=== PATIENT | male | born 1955 | race Caucasian/White ===

== ENCOUNTER 2025-01-08 08:41 | Outpatient (REF) | payer MEDICARE, MEDICAID, SELFPAY ==
--- NOTE | ~2025-01-08 | XR_ITS ---
EXAMINATION: XR KNEE, LEFT CLINICAL INFORMATION: M25.562 - Pain in left knee COMPARISON: None available. TECHNIQUE: AP bilateral, lateral, and sunrise views of the left knee. FINDINGS: There is moderate narrowing of the medial joint compartment and mild narrowing of the lateral. There are small marginal osteophytes, larger along the medial joint line. Small joint effusion is evident. There is faint amorphous calcific density visible in the lateral clear space and probably involving patellar cartilage at the median ridge. 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 Electronically signed by: Raghav Lai MD 01/08/2025 01:02 PM EDT
--- OUTSIDE RECORDS SUMMARY | 2025-01-09 08:49 | XMS_ITS | Clinical Summary ---
Author Organization [facility] Address [address] [place] [address] Care Team Providers Care Associate Agent Insurance Sales Name Role Phone Freddie Sepulveda MD Primary Care Provider +1- [phone] Allergies No known active allergies Medications Medication [...] this topic Medical Devices Implanted Type Area Cooling Tower Technician Device Identifier Shelf Expiration Date Model / Serial / Lot Stent Advanix 12cm 10fr Duodenal Bend Rapdx Preloaded Plas - [id number] - [id number] Implanted:Qty: 1 on 06/05/2018 by Francisco Clark MD at [facility] [place] [facility] N/A: Bile Duct [employer] 05/01/2020 [id number] / / [id number] Stent Advanix 12cm 10fr Duodenal Bend Rapdx Preloaded Plas - [id number] - [id number] Implanted:Qty: 1 on 06/05/2018 by Francisco Clark MD at [facility] [place] N/A: Bile Duct [employer] 05/01/2020 [id number] / / [id number] Explanted Type Area Cooling Tower Technician Device Identifier Shelf Expiration Date Model / Serial / Lot Stent Advanix 12cm 10fr Duodenal Bend Rapdx Preloaded Plas - [id number] - [id number] Implanted:Qty: 1 on 05/18/2018 by Francisco Clark MD at [facility] [place] Explanted:Qty: 1 on 06/05/2018 by Francisco Clark MD at [facility] [place] [employer] 03/08/2019 [id number] / / [id number] Stent Advanix 12cm 10fr Duodenal Bend Rapdx Preloaded Plas - [id number] - [id number] Implanted:Qty: 1 on 05/18/2018 by Francisco Clark MD at [facility] [place] and [facility] Explanted:Qty: 1 on 06/05/2018 by Francisco Clark MD at [facility] N/A: Bile Duct [employer] 04/13/2020 [id number] / / [id number] Advance Directives For more information, please contact: [phone] Latest Code Status on File Code Status [...] way: discussion with patient . Care Teams Associate Agent Insurance Sales Relationship Specialty Start Date End Date Freddie Sepulveda MD [address] [facility] [address] [place] [address] PCP - General Internal Medicine 05/16/18
--- OUTSIDE RECORDS SUMMARY | 2025-01-09 08:49 | XMS_ITS | Clinical Summary ---
Author Organization [address] [place] [address] [place] [phone] Phone Care Team Providers Care Sheet Metal Shop Supervisor Name Role Phone Freddie Sepulveda MD Primary Care Provider +1- [phone] Allergies No known active allergies Medications dabigatran [...] Type Department Care Team Description 12/22/2024 Telephone [facility] Cardiology [facility] [address] [place] [address] Gabriela Elizondo NP No Show 10/25/2024 Telephone [facility] Cardiology [facility] [address] [place] [address] Bladimir Patterson MD Medication; Prior Auth (Pradaxa 150MG capsules) 10/23/2024 10:30 AM EDT Ancillary Procedure [facility] Cardiology [facility] [address] [place] [id number] Ascending aorta dilation (CMS/HCC V24) 10/20/2024 Telephone [facility] Cardiology [facility] [address] [place] [address] Gabriela Elizondo NP 10/19/2024 Telephone [facility] Cardiology [facility] [address] [place] [address] Bladimir Patterson MD from Last 3 Months Surgical History Surgery Date Site/Laterality Comments CHOLECYSTECTOMY 2014 PROCEDURE: [place] CHOLECYSTECTOMY CARPAL TUNNEL RELEASE 2017 PROCEDURE: [place] NEUROPLASTY &/TRANSPOS MEDIAN NRV CARPAL TUNNE Medical [...] this topic Medical Devices Implanted Type Area Aerial Planting And Cultivation Manager Device Identifier Shelf Expiration Date Model / Serial / Lot Stent Advanix 12cm 10fr Duodenal Bend Rapdx Preloaded Plas - [id number] Implanted:Qty: 1 on 06/05/2018 by Francisco Clark MD N/A: Bile Duct [employer] 05/01/2020 [id number] / / [id number] Stent Advanix 12cm 10fr Duodenal Bend Rapdx Preloaded Plas - [id number] Implanted:Qty: 1 on 06/05/2018 by Francisco Clark MD N/A: Bile Duct [employer] 05/01/2020 [id number] / / [id number] Procedures Procedure Name Priority Date/Time Associated Diagnosis [...] (10/23/2024 11:10 AM EDT) Left Atrium Minor [place] 6.3 cm CV PACS Left Atrium Major [place] 6.2 cm CV PACS [place] Area Sys [...] Volume 100 mL CV PACS MV Deceleration [place] 2.6 m/s2 CV PACS E Wave Deceleration [...] Insurance MEDICARE MEDICAID - [place] Care Teams Sheet Metal Shop Supervisor Relationship Specialty Start Date End Date Freddie Sepulveda MD [address] [facility] [address] [place], [place] PCP - General Internal Medicine 04/27/18
== END 2025-01-08 08:42 | disposition home or self-care (01) ==
LOC: HO.HOSX 08:41
PROVIDERS: Visit Provider Physician Assistant
DX: M17.12 Unilateral primary osteoarthritis, left knee (principal); M25.562 Pain in left knee
CPT/HCPCS: 73562; 99202

== ENCOUNTER 2025-01-08 09:48 | Outpatient (AMB) | payer MEDICARE, MEDICAID, SELFPAY ==
--- OUTSIDE RECORDS SUMMARY | 2025-01-02 23:59 | XMS_ITS | Continuity of Care Document ---
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 Start Date: 07/02/22 Status: Ordered Quantity: 30.0 Unit: tablet Repeat number: 1 Cartia XT 240 mg/24 hours oral capsule, extended release 1 capsule = 240 mg, By Mouth, Daily, # 30 capsule, 0 Refills, Maintenance, 07/02/22 12:35:00 PM EST, CR Capsule, Partial fill upon patient request if the prescription is for a schedule II opioid drug. Start Date: 07/02/22 Status: Ordered Quantity: 30.0 Unit: capsule Repeat number: 1 morphine 15 mg oral tablet, immediate release 1 tablet = 15 mg, By Mouth, Every 6 hours, PRN as needed for pain, # 7 tablet, 0 Refills, Acute 12/11/25 4:30:00 AM EDT, 12/11/24 4:29:00 AM EDT, Tablet, [id number], Partial fill upon patient request if the prescription is for a schedule II opioid drug., 173, cm, 12/10/24 22:26:00 EDT, Height, 102, kg, 12/10/24 22:26:00 EDT, Dry Weight Start Date: 12/11/24 Stop Date: 12/11/25 Status: Ordered Quantity: 7.0 Unit: tablet Repeat number: 1 Pradaxa 150 mg oral capsule 1 capsule = 150 mg, By Mouth, 2 times a day, 0 Refills, Maintenance, 07/02/22 12:34:00 PM EST, Capsule, Partial fill upon patient request if the prescription is for a schedule II opioid drug. Start Date: 07/02/22 Status: Ordered Repeat number: 1 Problem List Condition Confirmation Course Effective Dates Status Health St [facility] Informant Obese class I Confirmed Active Social History Social History Type Response Smoking Status Never smoker entered on: 06/03/15 Sex Sex Representation Male (finding) Patient Care team information Care Team Personnel Name: Demetrio Ayala RN Position: [facility] ED RN W/OE and Tasks Member Role: Primary Care Nurse Name: Nesha Aquino RN Position: [facility] RN Member Role: Primary Care Nurse Name: Not on Staff, PCP Position: [facility] Physician (General Medicine) Member Role: PCP Care Team Related Persons Name: TATY GRIFFIN Name: JAMES MARTINEZ Insurance Providers Guarantor name: PEREZ LAYTONGABYMARY Health Plan Information #: 1 Payer: MEDICARE B Payer Identifier: SHANDA Member Number: [id number] Group Number: [id number] Subscriber Identifier: [id number] Relationship to Subscriber: self Coverage Type: NA Coverage Verification Date: NA Telecom: SHANDA Address:
--- NOTE | 2025-01-08 09:56 | A.OFFVIS_ITS ---
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 Patient reports ongoing left knee pain for about 6 months now. He was seen with his PCP who ordered an MRI that was completed at [facility] on 09/14/24. He states that his pain is on the medical aspect of the knee. Patient does have a trauma injury on his pandya and he is going to have surgery today at 2PM at [facility]. He notices that his pain is worse when going down the stairs and getting up in the morning. Patient has tried taking ibuprofen with mild relief. Impression: 1. Tricompartmental degenerative changes with full-hickness chondral loss predominantly in the posterior weight bearing aspect of the medial compartment. 2. Complex tear of the medial meniscal body and posterior third 3. Horizontal tear of the posterior tibial attachment of the lateral meniscus 4. Additional findings including mucoid degeneration in the ACL and a small possibly partially ruptured Bentley's cyst. 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 Cortez This is a 69-year-old male who presents to the office today for evaluation of left knee pain. He reports that 1 year ago he fell off of a 6 ft ladder and believes this is when his pain began. Over the past 2-3 months possibly more the patient has noticed as a significant increase in pain. The majority of his pain is located along the medial joint line. He had an MRI that was performed at [facility]. He has not tried cortisone injection or knee bracing. [facility] Social History Alcohol intake: never Patient Tobacco Use Status: Never used Tobacco Current occupational status: retired Review of Systems Const All systems reviewed & are unremarkable except as noted in HPI and below Physical Exam Vital Signs: BMI result Body Mass Index 35.1 Const General: cooperative, healthy appearing and no acute distress Resp Effort & Inspection: normal respiratory effort and able to speak in complete sentences Extrem Other: Left knee: No ecchymosis, erythema, or joint effusion. Tenderness to palpation medial joint line. Range of motion 10-120. Negative Ryan's. NVI. Of note patient does have a large hematoma located on the anterior aspect of his tibia located distally to the knee. Assessment & Plan Assessment & Plan (1) Osteoarthritis of left knee: Code(s): M17.12 - Unilateral primary osteoarthritis, left knee Category: Medical Plan Mr. Cortez This is a 69-year-old male who presents to the office today for evaluation of left knee pain. He reports that 1 year ago he fell off of a 6 ft ladder and believes this is when his pain began. Over the past 2-3 months possibly more the patient has noticed as a significant increase in pain. The majority of his pain is located along the medial joint line. He had an MRI that was performed at [facility]. He has not tried cortisone injection or knee bracing. While the office today, we discussed the role of cortisone injection and knee brace. Patient states that his pain improves when taking ibuprofen. He would like to continue taking oral medications and declines cortisone injection at this time. We discussed the role of knee bracing and he is amenable to try this. A Genumed knee brace was fit for the patient off the shelf while the office today. He may use this during activities. In regards to the patient's large hematoma in the anterior aspect of the pandya distal to the knee he is seeing [facility] and is pending a procedure for possible evacuation of hematoma today. Patient will follow up PRN, sooner if needed. X-rays of the left knee which were obtained while in the office today and were reviewed by me, Tessa Heath PA-C, revealed osteoarthritis medial joint line. MRI obtained on 09/14/24 of the left knee: Impression: 1. Tricompartmental degenerative changes with full-hickness chondral loss predominantly in the posterior weight bearing aspect of the medial compartment. 2. Complex tear of the medial meniscal body and posterior third 3. Horizontal tear of the posterior tibial attachment of the lateral meniscus 4. Additional findings including mucoid degeneration in the ACL and a small possibly partially ruptured Bentley's cyst. Orders: Orders XR knee LT 3V Today M25.562 - Pain in left knee Coding Level of Care Code New Pt Level 3 (93497) Diagnoses Osteoarthritis of left knee M17.12
[2025-01-08 10:02] VITALS: BMI 35.1
--- OUTSIDE RECORDS SUMMARY | 2025-01-08 10:19 | XMS_ITS | Clinical Summary ---
Author Organization [address] [place] [address] [place] [id number] Phone Care Team Providers Care Consulting Sales Manager Name Role Phone Freddie Sepulveda MD Primary Care Provider [phone] Allergies No known active allergies Medications dabigatran etexilate (Pradaxa) 150 mg capsule Take 1 capsule by mouth twice daily 03/15/2024 Active diclofenac (Voltaren Arthritis Pain) 1 % topical gel APPLY TO LOWER EXTREMITIES, 4 GM OF GEL TO AFFECTED AREA 4 TIMES DAILY. DO NOT APPLY MORE THAN 16 GM DAILY TO ANY ONE AFFECTED JOINT. 11/05/2017 Active dilTIAZem (TIAZAC) 240 mg 24 hr capsule Take 1 Capsule by mouth daily. 09/07/2023 Active flecainide (TAMBOCOR) 50 mg tablet Take 50 mg by mouth 2 (two) times a day. 04/19/2018 Active tamsulosin (FLOMAX) 0.4 mg 24 hr capsule TAKE 1 CAPSULE BY MOUTH AT BEDTIME 07/22/2019 Active ursodioL (ACTIGALL) 500 mg tablet 500 mg. 11/05/2017 Active atorvastatin (LIPITOR) 40 mg tablet Take 1 tablet by mouth once daily 90 tablet 2 06/15/2024 Active Active Problems Problem Noted Date Diagnosed Date Ascending aorta dilation (CMS/HCC V24) 1 Overview (06/09/2024): Echo July 2020 aortic root dilatation of 4.3 cm as well as ascending aorta 4.3 cm. His aortic root measured 3.8 cm in November 2016 and ascending aorta 4.2 cm. Echo 04/2022 ascending aorta 4.3 cm, root 4.4 cm Last Assessment & Plan: Will repeat echocardiogram prior to next office visit. Chest discomfort 10/02/2020 Overview (06/09/2024): pharmacologic MIBI in 01/2020 without ischemia with normal LVEF and likely diaphragmatic attenuation Last Assessment & Plan: The patient continues with chest discomfort that occurs sporadically. He had a normal pharmacologic nuclear stress test in January 2020. Given no high risk features to his stress test and no predictability to his symptoms, will continue medical therapy. He is encouraged to try to increase his exercise and follow his symptoms. Once we have better measurement of his aorta we can consider dobutamine stress echocardiogram if his symptoms persist or progress in any way. Essential hypertension 10/02/2020 Overview (06/09/2024): Last Assessment & Plan: Well-controlled. Paroxysmal A-fib (CMS/HCC V24, CMS/HCC V28) 12/2020 Overview (06/09/2024): Status post DCCV Anticoagulated with Pradaxa 14 day ROCT in August 2019 without atrial fibrillation Nuclear stress test in 01/2020 no perfusion defect Last Assessment & Plan: Doing well overall and remained in sinus rhythm. Will continue Pradaxa, low-dose flecainide and current dose diltiazem. Will repeat ETT in 6 months. Sleep apnea 10/02/2020 Overview (06/09/2024): Untreated as does not tolerate the mask Hyperlipidemia 04/19/2018 Overview (06/09/2024): Last Assessment & Plan: We will repeat lipid profile. Choledocholithiasis with obstruction 12/03/2017 Encounters Date Type Department Care Team Description 12/22/2024 Telephone [facility] Cardiology [facility] [address] [place] [address] Gabriela Elizondo NP No Show 10/25/2024 Telephone [facility] Cardiology [facility] [address] [place] [address] Bladimir Patterson MD Medication; Prior Auth (Pradaxa 150MG capsules) 10/23/2024 10:30 AM EDT Ancillary Procedure [facility] [address] [place] [id number] Ascending aorta dilation (CMS/HCC V24) 10/20/2024 Telephone [facility] [address] [place] [address] Gabriela Elizondo NP 10/19/2024 Telephone [facility] [address] [place] [address] Bladimir Patterson MD from Last 3 Months Surgical History Surgery Date Site/Laterality Comments CHOLECYSTECTOMY 2014 PROCEDURE: [place] CHOLECYSTECTOMY CARPAL TUNNEL RELEASE 2017 PROCEDURE: [place] NEUROPLASTY &/TRANSPOS MEDIAN NRV CARPAL TUNNE Medical History Medical History Date Comments Choledocholithiasis with obstruction 12/03/2017 DX:Choledocholithiasis with obstruction Hyperlipidemia 04/19/2018 DX:Hyperlipidemi a Family History Medical History Relation Name Comments No Known Problems Brother 1 No Known Problems Brother 2 No Known Problems Brother 3 No Known Problems Brother 4 Other: Other Father 93 Heart failure Mother 80 Other: heart disease Mother 80 Relation Name Status Comments Brother 1 Alive Brother 2 Alive Brother 3 Alive Brother 4 Alive Father 93 Mother 80 Sister Alive Social History Tobacco Use Types Packs/Day Years Used Date Smoking Tobacco: Never Smokeless Tobacco: Never Alcohol Use Standard Drinks/Week Comments No 0 (1 standard drink = 0.6 oz pur e alcohol) Sex and Gender Information Value Date Recorded Sex Assigned at Not on file Legal Sex Male 10:53 AM EST Gender Identity Not on file Sexual Orientation Not on file Obstetrics History Last Filed Vital Signs Vital Sign Reading Time Taken Comments Blood Pressure 144/75 10/23/2024 2:38 PM EDT Pulse 75 04/20/2024 8:41 AM EDT Temperature - - Respiratory Rate - - Oxygen Saturation - - Inhaled Oxygen Concentration - - Weight 101 kg (222 lb) 10/23/2024 2:38 PM EDT Height 170.2 cm (5' 7 ) 10/23/2024 2:38 PM EDT Body Mass Index 34.77 10/23/2024 2:38 PM EDT Plan of Treatment Health Maintenance Due Date Last Done Comments DTaP,Tdap,and Td Vaccines (1 - Tdap) 09/14/1974 Pneumococcal Vaccine: 50+ Years (1 of 1 - PCV) 09/14/2005 Zoster Vaccines (1 of 2) 09/14/2005 Colorectal Cancer Screening: Colonoscopy 05/26/2022 Depression Screening 05/26/2022 Falls Risk Assessment 05/26/2022 Hepatitis C Screening 05/26/2022 Social Influencers of Health Screening 05/26/2022 Hypertension/CHF/CAD Annual BMP Blood Test 06/13/2022 06/05/2018, 06/04/2018, 06/03/2018, Additional history exists Medicare Annual Wellness Visit 05/12/2023 05/12/2022 COVID-19 Vaccine ( season) 2024 Influenza Vaccine (#1) 2025 Cholesterol Screening (Lipid Panel) 08/06/2026 08/06/2021, 06/04/2018 RSV Immunization Adult Patients (1 - 1-dose 75+ series) 09/14/2030 HIB Vaccines Aged Out No longer eligi ble based on patient's age to complete this topic HPV Vaccines Aged Out No longer eligi ble based on patient's age to complete this topic Hepatitis A Vaccines Aged Out No long er eligible based on patient's age to complete this topic Hepatitis B Vaccines Aged Out No long er eligible based on patient's age to complete this topic IPV Vaccines Aged Out No longer eligi ble based on patient's age to complete this topic MMR Vaccines Aged Out No longer eligi ble based on patient's age to complete this topic Meningococcal ACWY Vaccine Aged Out N o longer eligible based on patient's age to complete this topic Meningococcal B Vaccine Aged Out No l onger eligible based on patient's age to complete this topic RSV Immunization Patients Under 20 months Aged Out No longer eligible based on patient's age to complete this topic Varicella Vaccines Aged Out No longer eligible based on patient's age to complete this topic Medical Devices Implanted Type Area Veneer Marker Device Identifier Shelf Expiration Date Model / Serial / Lot Stent Advanix 12cm 10fr Duodenal Bend Rapdx Preloaded Plas - [id number] Implanted:Qty: 1 on 06/05/2018 by Francisco Clark MD N/A: Bile Duct [employer] 05/01/2020 [id number] / / [id number] Stent Advanix 12cm 10fr Duodenal Bend Rapdx Preloaded Plas - [id number] Implanted:Qty: 1 on 06/05/2018 by Francisco Clark MD N/A: Bile Duct [employer] [employer] 05/01/2020 [id number] / / [id number] Procedures Procedure Name Priority Date/Time Associated Diagnosis Comments CMP, CBC DIFF WITH ADDITIONAL CHEMISTRIES Routine 12/11/2024 8:38 AM EDT TRANSTHORACIC ECHOCARDIOGRAM (TTE) COMPLETE Routine 10/23/2024 11:10 AM EDT Ascending aorta dilation (CMS/HCC V24) LIPID PANEL Routine 08/06/2021 from Last 3 Months or Most Recently Relevant to Health Maintenance Results * CMP, CBC DIFF with additional chemistries (12/11/2024 8:38 AM EDT) Blood Venous blood specimen / Unknown us Historical Provider LAB BLOOD ORDERABLES Sariah l Result * (ABNORMAL) TRANSTHORACIC ECHOCARDIOGRAM (TTE) COMPLETE (10/23/2024 11:10 AM EDT) Left Atrium Minor [place] 6.3 cm CV PACS Left Atrium Major [place] 6.2 cm CV PACS LA Area Sys (A2C) 30 cm2 CV PACS LA Area Sys (A4C) 23 cm2 CV PACS LA Volume (BP) 90 mL CV PACS LA Size 4.6 cm CV PACS RA Area 20.5 cm2 CV PACS RA 2D Volume 67 mL CV PACS AV Mean Gradient 3 mmHg CV PACS AV Mean Gradient 3 mmHg CV PACS Ao VTI 24.5 cm CV PACS AV Peak Teo 1.2 m/s CV PACS AV Peak Gradient 6 mmHg CV PACS AV Area Continuity Equation 4.1 cm2 CV PACS AV Area Peak Velocity 4.2 cm2 CV PACS Aortic Arch 3.1 cm CV PACS Ascending Aorta 4.2 cm CV PACS Aortic Sinus Valsalva 4.6 cm CV PACS IVC Proximal 1.7 cm CV PACS IVSD 1.1(A) 0.6 - 1.0 cm CV PACS LVIDD 5.6 4.2 - 5.8 cm CV PACS LVIDS 3.7 2.5 - 4.0 cm CV PACS LVOT Diameter 2.5 cm CV PACS LVOT Mean Teo 0.7 m/s CV PACS LVOT Mean Grad 2 mmHg CV PACS LVOT Mean Grad 2 mmHg CV PACS LVOT Peak VTI 20.4 cm CV PACS LVOT Peak Teo 1.0 m/s CV PACS LVOT Peak Teo 1.0 m/s CV PACS LVOT Peak Gradient 4 mmHg CV PACS LVPWD 1.1(A) 0.6 - 1.0 cm CV PACS MV E' Tissue Velocity Lateral 12 cm/s CV PACS MV E' Tissue Velocity Septal 7 cm/s CV PACS LVOT Area 4.9 cm2 CV PACS LVOT Stroke Volume 100 mL CV PACS MV Deceleration [place] 2.6 m/s2 CV PACS E Wave Deceleration Time 305(A) 119 - 242 ms CV PACS MV PHT 90 ms CV PACS MV Peak A Teo 0.90 m/s CV PACS MV Peak E Teo 0.80 m/s CV PACS MV Mean Gradient 1 mmHg CV PACS MV Mean Gradient 1 mmHg CV PACS MV Mean Gradient 1 mmHg CV PACS MV Mean Gradient 1 mmHg CV PACS MV VTI 38.4 cm CV PACS Mitral Valve Max Velocity 0.9 m/s CV PACS Mitral Valve Max Velocity 0.9 m/s CV PACS MV Peak Gradient 3 mmHg CV PACS MV Area PHT 2.4 cm2 CV PACS MV Area Continuity Equation 2.6 cm2 CV PACS PV Acceleration Time 132 ms CV PACS PV Mean Gradient 1 mmHg CV PACS PV VTI 18.6 cm CV PACS PV Peak Velocity 0.9 m/s CV PACS PV Peak Gradient 3 mmHg CV PACS RV Diastolic Basal Dimension 4.7(A) 2.5 - 4.1 cm CV PACS RV S' 14 cm/s CV PACS TAPSE 30 mm CV PACS E/E' Ratio Septal 11 CV PACS E/E' Ratio Averaged 9 CV PACS Relative Wall Thickness ratio 0.39 CV PACS LVOT:AV VTI Index 0.83 CV PACS FS 34 % CV PACS LV Mass 2D 249 g CV PACS MV VTI:LVOT VTI ratio 1.9 CV PACS LVOT flow 343 mL/s CV PACS E/A Ratio 0.9 CV PACS E/E' Ratio Lateral 7 CV PACS BSA 2.18 m2 CV PACS LA Volume Index (BP) 43 mL/m2 CV PACS LVIDD Index 2.65 cm/m2 CV PACS LVIDS Index 1.75 cm/m2 CV PACS LV Mass Index 2D 118(A) 50 - 102 g/m2 CV PACS LVOT Stroke Index 47 mL/m2 CV PACS LA Dimension Index 2D 2.2 cm/m2 CV PACS RA 2D Volume Index 32 18 - 32 mL/m2 CV PACS ANDREW Index (VTI) 1.94 cm2/m2 CV PACS ANDREW Index (Pk Teo) 1.99 cm2/m2 CV PACS Ascending Aorta Index 1.99 cm/m2 CV PACS Est. RA Pressure 3 mmHg CV PACS Anatomical Region Laterality Modality Ultrasound Narrative 10/23/2024 4:30 PM EDT Left ventricle cavity size is normal. There is mild concentric hypertrophy. Systolic function is normal with an ejection fraction of 60-65%. There are no regional LV wall motion abnormalities. Right ventricle cavity is mildly enlarged. Right ventricular systolic function is normal. No hemodynamically significant valvular disease. The Sinus of Valsalva is dilated (4.6 cm). The ascending aorta is dilated (4.2 cm). Compared to previous study of 05/05/2022, ascending aorta size is similar. Aortic root appears slightly increased in size. Left Ventricle Left ventricle cavity size is normal. There is mild concentric hypertrophy. Systolic function is normal with an ejection fraction of 60-65%. There are no regional LV wall motion abnormalities. Indeterminate diastolic function. Right Ventricle Right ventricle cavity is mildly dilated. Systolic function is normal. Left Atrium Left atrium cavity is moderately dilated. Right Atrium Right atrium cavity is mildly dilated. IVC/SVC Inferior vena cava structure is normal. RA pressures is estimated to be 3 mmHg (IVC diameter <21 mm and decreases >50% during inspiration). Mitral Valve The leaflets are mildly thickened. There is mild annular calcification. There is trace regurgitation. There is no evidence of mitral valve stenosis. Tricuspid Valve Tricuspid valve structure is normal. Tricuspid regurgitation is inadequate for estimation of right ventricular systolic pressure. Cannot assess RVSP. Aortic Valve The aortic valve is trileaflet. The leaflets are mildly thickened. There is no regurgitation or stenosis. Pulmonic Valve There is trace pulmonic valve regurgitation. Ascending Aorta The Sinus of Valsalva is dilated (4.6 cm). The ascending aorta is dilated (4.2 cm). The transverse aorta is dilated (3.1 cm). Pericardium Pericardium appears normal. There is no pericardial effusion. Study Details Overall the study quality was adequate. Bladimir Patterson MD CV ECHO PROCEDURES Final Result * (ABNORMAL) Lipid panel (08/06/2021) LDL/HDL Ratio 6(A) 0 - 4 Triglycerides 171(A) 0 - 150 mg/dL Cholesterol 209(A) 0 - 200 mg/dL HDL 38(A) >=40 mg/dL LDL Cholesterol 137(A) 0 - 100 mg/dL Blood Venous blood specimen / Unknown Historical Provider LAB BLOOD ORDERABLES Sariah l Result from Last 3 Months or Most Recently Relevant to Health Maintenance Insurance MEDICARE [place]ICAID - [place] Care Teams Consulting Sales Manager Relationship Specialty Start Date End Date Freddie Sepulveda MD [address] [facility] [address] [place], [place] PCP - General Internal Medicine 04/27/18
--- OUTSIDE RECORDS SUMMARY | 2025-01-08 10:19 | XMS_ITS | Clinical Summary ---
Author Organization [facility] Address [address] [place] [address] Care Team Providers Care Material Worker Name Role Phone Freddie Sepulveda MD Primary Care Provider +1- [phone] Allergies No known active allergies Medications Medication Sig Dispensed Refills Start Date End Date Status atorvastatin (LIPITOR) tablet 20 mg Take 20 mg by mouth daily. 0 03/08/2018 Active flecainide (TAMBOCOR) 50 MG tablet Take 50 mg by mouth 2 (two) times a day. 0 04/19/2018 Active CARTIA XT 240 MG 24 hr capsule Take 240 mg by mouth daily. 0 05/11/2018 Active ursodiol (ACTIGALL) 300 MG capsule Take 2 capsules (600 mg total) by mouth 2 (two) times a day. 120 capsule 0 05/19/2018 Active PRADAXA 150 MG capsu Take 1 capsule (150 mg total) by mouth 2 (two) times a day. 60 capsule 0 05/19/2018 Active traMADol (ULTRAM) 50 MG tablet Take 50 mg by mouth every 6 (six) hours as needed for pain. 0 Active Active Problems Problem Noted Date Diagnosed Date Acute cholangitis 06/03/2018 Secondary hypercoagulable state 05/18/2018 Choledocholithiasis 05/18/2018 Acute pancreatitis 05/16/2018 A-fib 05/16/2018 HLD (hyperlipidemia) 05/16/2018 Social History Tobacco Use Types Packs/Day Years Used Date Smoking Tobacco: Never Smokeless Tobacco: Never Alcohol Use Standard Drinks/Week Comments No 0 (1 standard drink = 0.6 oz pur e alcohol) Sex and Gender Information Value Date Recorded Sex Assigned at Male 05/17/2018 9:02 AM EST Gender Identity Male 05/18/2018 12:50 PM EST Sexual Orientation Straight 05/18/2018 12 :50 PM EST Job Start Date Occupation Industry Not on file Not on file Not on file Last Filed Vital Signs Vital Sign Reading Time Taken Comments Blood Pressure 117/64 06/05/2018 12:15 PM EST Pulse 55 06/05/2018 12:15 PM EST Temperature 36.3 C (97.4 F) 06/05/2018 11:40 AM EST Respiratory Rate 17 06/05/2018 12:1 5 PM EST Oxygen Saturation 92% 06/05/2018 12: 15 PM EST Inhaled Oxygen Concentration - - Weight 85.7 kg (188 lb 14.4 oz) 06/05/2018 6:09 AM EST Height 172.7 cm (5' 8 ) 06/03/2018 10:5 8 PM EST Body Mass Index 28.72 06/03/2018 10:58 PM EST Plan of Treatment Health Maintenance Due Date Last Done Comments Hepatitis C Screening 1955 COVID-19 Vaccine (#1) 03/17/1956 Depression Screening 1967 Preventative Health Evaluation 09/14/1973 DTap / Tdap / Td (1 - Tdap) 09/14/1974 Colon Cancer Screening (Colonoscopy) 09/14/2000 Shingrix-Zoster Vaccine (1 of 2) 09/14/2005 Fall Risk Assessment 09/14/2020 Pneumococcal Vaccine (1 of 1 - PCV) 09/14/2020 Influenza Vaccine (#1) 2025 RSV Adult > 60+ Yrs or Pregn ant (1 - 1-dose 75+ series) 09/14/2030 Hepatitis B Vaccines Aged Out No long er eligible based on patient's age to complete this topic RSV Ped < 20 months Aged Out No longe r eligible based on patient's age to complete this topic Medical Devices Implanted Type Area Order Worker Device Identifier Shelf Expiration Date Model / Serial / Lot Stent Advanix 12cm 10fr Duodenal Bend Rapdx Preloaded Plas - [id number] - [id number] Implanted:Qty: 1 on 06/05/2018 by Francisco Clark MD at [facility] N/A: Bile Duct [employer] 05/01/2020 [id number] / / [id number] Stent Advanix 12cm 10fr Duodenal Bend Rapdx Preloaded Plas - [id number] - [id number] Implanted:Qty: 1 on 06/05/2018 by Francisco Clark MD at [facility] [place] [facility] N/A: Bile Duct [employer] 05/01/2020 [id number] / / [id number] Explanted Type Area Order Worker Device Identifier Shelf Expiration Date Model / Serial / Lot Stent Advanix 12cm 10fr Duodenal Bend Rapdx Preloaded Plas - [id number] - [id number] Implanted:Qty: 1 on 05/18/2018 by Francisco Clark MD at [facility] [place] [facility] Explanted:Qty: 1 on 06/05/2018 by Francisco Clark MD at [facility] [place] [facility] [employer] 03/08/2019 [id number] / / [id number] Stent Advanix 12cm 10fr Duodenal Bend Rapdx Preloaded Plas - [id number] - [id number] Implanted:Qty: 1 on 05/18/2018 by Francisco Clark MD at [facility] [place] [facility] Explanted:Qty: 1 on 06/05/2018 by Francisco Clark MD at [facility] [place] [facility] N/A: Bile Duct [employer] 04/13/2020 [id number] / / [id number] Advance Directives For more information, please contact: [phone] Latest Code Status on File Code Status Date Activated Date Inactivated Comments Full Code 06/05/2018 11:32 AM 06/05/2018 11:12 PM Thi s code status was ascertained in the following way: discussion with patient . Code Status History Code Status Date Activated Date Inactivated Comments Full Code 06/03/2018 10:55 PM 06/05/2018 11:32 AM Thi s code status was ascertained in the following way: with patient . Full Code 05/18/2018 2:41 PM 05/19/2018 3:14 PM Thi s code status was ascertained in the following way: discussion with patient . Full Code 05/16/2018 10:21 PM 05/18/2018 2:41 PM Th is code status was ascertained in the following way: discussion with patient . Care Teams Material Worker Relationship Specialty Start Date End Date Freddie Sepulveda MD [address] [facility] [address] [place] [address] PCP - General Internal Medicine 05/16/18
== END 2025-01-08 10:40 | disposition home or self-care (01) ==
PROVIDERS: PCP Physician Assistant Medical; Visit Provider Physician Assistant
DX: M17.12 Unilateral primary osteoarthritis, left knee (principal)
CPT/HCPCS: 99203

== ENCOUNTER → 2025-01-08 09:50 | Outpatient (BNV) | payer MEDICARE, MEDICAID, SELFPAY | PROVIDERS: Visit Provider Radiology Diagnostic Radiology | DX: M17.12 Unilateral primary osteoarthritis, left knee (principal); M11.262 Other chondrocalcinosis, left knee; M25.462 Effusion, left knee | CPT/HCPCS: 73562 ==